=== PATIENT | male | born 1980 | race African-American/Black ===

== ENCOUNTER 2019-08-24 14:11 | Emergency (ER) | payer OTHER | END 2019-08-24 14:40 | disposition left against medical advice (07) | LOC: ERS 14:11 | DX: Z53.21 Procedure and treatment not carried out due to patient leaving prior to being seen by health care provider (principal) ==

== ENCOUNTER 2020-11-25 23:38 | Emergency (ER) | payer OTHER | END 2020-11-25 23:59 | disposition left against medical advice (07) | LOC: ERS 23:38 | DX: Z53.21 Procedure and treatment not carried out due to patient leaving prior to being seen by health care provider (principal) ==